=== PATIENT | female | born 1955 | race Caucasian/White ===

== ENCOUNTER 2016-07-27 08:05 | Day surgery (SDC) ==
[2016-07-26 09:26] LABS: MANUAL DIFF NEEDED? NO
[2016-07-26 09:42] LABS: BASO% 1.2 % (0.0-0.8); EOS# 0.17 X1000 (0.0-0.7); EOS% 3.3 % (0.0-10.0); HEMATOCRIT 36.4 % (37.0-47.0); HEMOGLOBIN 11.4 g/dL (12.0-16.0); LYMPH# 1.87 X1000 (1.2-3.4); LYMPH% 36.2 % (20.5-51.1); MCH 26.1 PG (27-31); MCHC 31.3 g/dL (33-37); MCV 83.5 FL (81-99); MONO# 0.33 X1000 (0.11-0.59); MONO% 6.4 % (1.7-9.3); MPV 10.8 FL (7.4-10.4); NEUT% 52.9 % (42.2-75.2); PLT 287 X1000 (130-400); RBC 4.36 XMIL (4.2-5.4)
[2016-07-26 10:02] LABS: AGAP 12; BUN 19 mg/dL (8-22); CALCIUM 8.8 mg/dL (8.8-10.2); CHLORIDE 101 mmol/L (98-107); COSMO 282; POTASSIUM 4.2 mmol/L (3.5-5.1); SODIUM 140 mmol/L (136-145); TCO2 27 mmol/L (25-35)
--- NOTE | 2016-07-26 15:17 | EKG Report ---
Test Performed on : 07/26/2016 09:12:07 AM Test Reason : PAT Blood Pressure : / mmHG Vent. Rate : 077 BPM Atrial Rate : 077 BPM P-R Int : 158 ms QRS Dur : 092 ms QT Int : 390 ms P-R-T Axes : 057 055 041 degrees QTc Int : 441 ms Normal sinus rhythm. Normal ECG When compared with ECG of 30-OCT-2013 15:10, No significant change was found Confirmed by Mamadou Sweet MD ([id number]) on 07/27/2016 9:21:04 PM
[2016-07-27] MEDS ORDERED: LR 1,000 ML ONE (08:24)
[2016-07-27] MEDS ORDERED: PEPCID ONE (08:24)
[2016-07-27] MEDS ORDERED: REGLAN ONE (08:24)
[2016-07-27] MEDS ORDERED: KEFZOL 2 GM/D5W 50 ML ONE (08:24)
[2016-07-27] MEDS ORDERED: XYLOCAINE 1% ONE (09:14)
[2016-07-27] MEDS ORDERED: MARCAINE 0.25% PF/EPI 1:200,000 ONE (09:14)
[2016-07-27] MEDS: MORPHINE ONE ×2 (10:23→10:28)
[2016-07-27] MEDS ORDERED: DIPRIVAN 1% ONE (10:27)
[2016-07-27] MEDS ORDERED: FENTANYL ONE (10:28)
[2016-07-27] MEDS ORDERED: XYLOCAINE-MPF 2% ONE (10:40)
[2016-07-27] MEDS ORDERED: NORCO-10 ONE (10:47)
[2016-07-27] MEDS ORDERED: PHENERGAN ONE (11:15)
[2016-07-27] MEDS ORDERED: SODIUM CHLORIDE 0.9% INJ ONE (11:20)
[2016-07-27] MEDS ORDERED: PHENERGAN IV ONE (11:20)
[2016-07-27 11:46] VITALS: BP 133/72
--- NOTE | 2016-07-27 15:32 | OPERATIVE NOTE ---
PROCEDURE DATE: 07/27/2016 PREOPERATIVE DIAGNOSIS: 2 cm lipomatous mass of the right flank. POSTOPERATIVE DIAGNOSIS: 2 cm lipomatous mass of the right flank. PROCEDURE: Ultrasound-guided excision of 2 cm right flank lipomatous mass. SURGEON: Eddy Negron MD. PALLIATIVE CARE PHYSICIAN: None. ANESTHESIA: General tracheal intraoperative. INTRAOPERATIVE FINDINGS: On ultrasound, there appeared to be a 2 cm mass that looked like a lipoma above the level of the muscle from the flank. EBL: 3 mL. SPECIMENS REMOVED: Lipoma. BRIEF HISTORY: The patient is a 61-year-old, female with a strong family history of cancer. She was concerned that this palpable lesion on the right flank, and it might be cancer. The risks, benefits and alternatives of her excision were discussed. She voiced understanding and wished to proceed with procedure. DESCRIPTION OF PROCEDURE: After informed consent was obtained, patient was brought to the operative theatre, transferred to the operative table and placed in the supine position. General endotracheal anesthesia was then performed without complication. The patient was then repositioned to prone in preoperative holding. The palpable lesion confirmed the patient in the right flank. This area was marked. We prepped and draped this area in a sterile fashion. After the formal time-out, we used ultrasound to view the area. There appeared to be a 2 cm lipomatous mass superficial to the level of the muscle and made our incision over this region of the palpable region. The incision itself was approximately 6 cm. We carried down subcutaneous tissue. We encountered the lipomatous mass and removed it in its entirety. It was in excess of 2 cm approaching 3 cm. Once we had removed it circumferentially, repalpated the area. There were no other obvious masses. We were able to visualize the muscle layer and palpate the ribs. We put the ultrasound back into the cavity and found no other lesions. We explored the area and found no other lesions. No signs of cancer. We then irrigated out the area copiously and closed it in layers using 3-0 Vicryl and 4-0 Monocryl. The patient had a sterile dressing applied. She tolerated procedure well and was transferred to the recovery room in stable condition.
== END 2016-07-27 12:05 | disposition home or self-care (01) ==
LOC: OPS 08:05
PROVIDERS: ATTEND Surgery
DX: D17.1 Benign lipomatous neoplasm of skin and subcutaneous tissue of trunk (principal); I10 Essential (primary) hypertension; F41.9 Anxiety disorder, unspecified
CPT/HCPCS: 80048; 85025; 88304; 93005; 93010; 96374; J0690; J2270; J2550; J3010; J7120